=== PATIENT | female | born 1950 | race Caucasian/White ===

== ENCOUNTER → 2016-05-03 | Outpatient (CLI) | payer BC ==
[~2016-05-03] MED LIST: ALPR-411 PO; AMOX500T PO; B-COTAB18 PO; CALC667C4 PO; CHOL100010 PO; CYAN1LOZ2; GABA-112 PO; GABA1CAP4 PO; GABA1CAP5 PO; LEVO25TA PO; LYSI100010; NORT25CA PO; SALI1SPR3 NAE; THY/30 PO; VALA1TAB31 PO; adrenal support
--- NOTE | 2016-05-03 13:26 | MAMMOGRAPHY REPORT ---
UNILATERAL LEFT DIGITAL DIAGNOSTIC MAMMOGRAM TOMOSYNTHESIS WITH CAD AND TARGETED LEFT ULTRASOUND: 05/03/2016 CLINICAL HISTORY: The patient reports left lateral breast pain, as well as a thickening/rough area i nvolving the left superior areola. She reports left nipple inversion which is chronic. She also sparrow d a small blister on the skin of her left medial breast which bled and is now resolving. She denies any nipple discharge, erythema, itching, or scaling. She denies any palpable lumps. TECHNIQUE: Breast tomosynthesis in addition to standard 2D mammography was performed. Current study was also evaluated with a Computer Aided Detection (CAD) system. CC and MLO 2-D and tomosynthesis images were obtained. COMPARISON: Comparison is made to exams dated: 06/18/2014 mammogram, 06/23/2015 mammogram, 06/17/2013 mammogram, 06/16/2012 mammogram, 06/08/2011 mammogram, and 06/02/2010 mammogram - [facility]. BREAST COMPOSITION: There are scattered areas of fibroglandular density in the left breast. FINDINGS: There are no suspicious masses, calcifications, or areas of architectural distortion note d within the left breast. There has been no significant interval change compared to prior exams. A symmetry overlying the left pectoralis muscle on the MLO view is stable compared to prior exams. Th ere is left nipple inversion, which has been seen on exams dating back to at least 2008. Targeted ultrasound was performed of the area of pain pointed out by the patient, in the left 3:00 b reast. No suspicious masses or other suspicious sonographic abnormalities are evident. Ultrasound was also performed of the left subareolar region; ultrasound of this region is somewhat limited due to the nipple inversion which creates shadowing deep to the nipple, however, no suspicious mass or o ther suspicious abnormality is evident. Targeted ultrasound was also performed of the area of the i mproving blister on the left breast, in the left breast at 10:00, 8 cm from the nipple. No suspicio us mass or other suspicious sonographic abnormalities evident in this region; there is no evidence o f a sebaceous/epidermal inclusion cyst. IMPRESSION: ACR BI-RADS CATEGORY 2: BENIGN, TARGETED ULTRASOUND ACR BI-RADS CATEGORY 2: BENIGN No suspicious mammographic or sonographic abnormality to explain left lateral breast pain and left a reolar thickening. There is no mammographic or targeted sonographic evidence of malignancy. Recomm end clinical follow-up for left breast complaints; if there is clinical concern for Paget's disease of the left areola, consider surgical consultation. Also recommend routine bilateral screening mamm ograms which are due June 2016. The patient has been verbally notified of the results. Approximately 10% of breast cancers are not detected with mammography. A negative mammographic repor t should not delay biopsy if a clinically suggestive mass is present. Alice Ames M.D. ah/:05/03/2016 10:30:42 Audio Visual Tech: Tabby MARTIN(Desmond)(Jacqueline), [facility] letter sent: Normal 1/2 BI-RADS Code: ACR BI-RADS Category 2: Benign Ultrasound BI-RADS: ACR BI-RADS Category 2: Benign
== END | disposition home or self-care (01) ==
LOC: C.MAMM 09:22
PROVIDERS: ATTEND Obstetrics & Gynecology
DX: N64.4 Mastodynia (principal)

== ENCOUNTER → 2016-06-26 | Outpatient (CLI) | payer BC ==
[~2016-06-26] MED LIST changes: -AMOX500T PO; -GABA1CAP4 PO
--- NOTE | 2016-06-27 14:35 | MAMMOGRAPHY REPORT ---
BILATERAL DIGITAL SCREENING MAMMOGRAM TOMOSYNTHESIS WITH CAD: 06/26/2016 CLINICAL HISTORY: Routine screening. Patient has no complaints. TECHNIQUE: Breast tomosynthesis in addition to standard 2D mammography was performed. Current study was also evaluated with a Computer Aided Detection (CAD) system. COMPARISON: Comparison is made to exams dated: 06/23/2015 mammogram, 06/18/2014 mammogram, 06/17/2013 mammogram, 06/16/2012 mammogram, 06/08/2011 ultrasound, and 05/03/2016 ultrasound - [facility]. BREAST COMPOSITION: There are scattered areas of fibroglandular density in both breasts. FINDINGS: There is stable asymmetry in the superior, far posterior left breast, projecting over the pectoralis muscle on the MLO view. No new suspicious mass, architectural distortion or cluster of m icrocalcifications is seen. IMPRESSION: ACR BI-RADS CATEGORY 1: NEGATIVE There is no mammographic evidence of malignancy. A 1 year screening mammogram is recommended. The p atient will receive written notification of the results. Approximately 10% of breast cancers are not detected with mammography. A negative mammographic repor t should not delay biopsy if a clinically suggestive mass is present. Triny Richards M.D. ay/:06/26/2016 18:43:49 Branch Specialist: Suzanne PIÑA)(Jacqueline), [facility] letter sent: Normal 1/2 BI-RADS Code: ACR BI-RADS Category 1: Negative
== END | disposition home or self-care (01) ==
LOC: C.MAMM 09:02
PROVIDERS: ATTEND Internal Medicine
DX: Z12.31 Encounter for screening mammogram for malignant neoplasm of breast (principal)

== ENCOUNTER → 2016-11-08 | Outpatient (CLI) | payer BC | END | disposition home or self-care (01) | LOC: C.PAPS 11:50 | PROVIDERS: ATTEND Obstetrics & Gynecology | DX: Z01.419 Encounter for gynecological examination (general) (routine) without abnormal findings (principal); Z78.0 Asymptomatic menopausal state ==

== ENCOUNTER → 2017-06-27 | Outpatient (CLI) | payer OTHER ==
[~2017-06-27] MED LIST changes: -CYAN1LOZ2; -GABA-112 PO; +GABA-113 PO; +GABA-1220 PO; -GABA1CAP5 PO; -LEVO25TA PO; +SALI-3 NAE; -SALI1SPR3 NAE
--- NOTE | 2017-06-27 14:44 | MAMMOGRAPHY REPORT ---
BILATERAL DIGITAL SCREENING MAMMOGRAM TOMOSYNTHESIS WITH CAD: 06/27/2017 CLINICAL HISTORY: Routine screening. Patient has no complaints. TECHNIQUE: Breast tomosynthesis in addition to standard 2D mammography was performed. Current study was also evaluated with a Computer Aided Detection (CAD) system. COMPARISON: Comparison is made to exams dated: 06/26/2016 mammogram, 05/03/2016 mammogram, 05/03/2016 ult rasound, 06/23/2015 mammogram, 06/18/2014 mammogram, and 06/17/2013 mammogram - [facility]. BREAST COMPOSITION: There are scattered areas of fibroglandular density in both breasts. FINDINGS: No suspicious masses, calcifications, or areas of architectural distortion are noted in ei ther breast. There has been no significant interval change compared to prior exams. Bilateral asymme tries are stable. IMPRESSION: ACR BI-RADS CATEGORY 2: BENIGN There is no mammographic evidence of malignancy. A 1 year screening mammogram is recommended. The pa tient will receive written notification of the results. Approximately 10% of breast cancers are not detected with mammography. A negative mammographic report should not delay biopsy if a clinically suggestive mass is present. Alice Ames M.D. /:06/27/2017 12:38:29 Guest Relations Representative: Neyda MARTINR, M, [facility] letter sent: Normal 1/2 BI-RADS Code: ACR BI-RADS Category 2: Benign
== END | disposition home or self-care (01) ==
LOC: C.MAMM 09:31
PROVIDERS: ATTEND Internal Medicine
DX: Z12.31 Encounter for screening mammogram for malignant neoplasm of breast (principal)